=== PATIENT | male | born 1945 | race Caucasian/White ===

== ENCOUNTER 2016-07-23 07:00 | Observation (INO) | payer MEDICARE, OTHER ==
[~2016-07-23] VITALS: Ht 177.8 cm; Wt 77.5 kg
--- NOTE | 2016-08-29 09:38 | CONS ---
DATE OF ADMISSION: 07/23/2016 DATE OF CONSULTATION: TYPE OF CONSULTATION: Preoperative Internal Medicine Consultation, Medical History and Physical. The patient to have surgery with Dr. Juni Santiago 09/03/2016. REASON FOR CONSULTATION: Consultation requested by Dr. Juni Santiago for medical evaluation and clearance of a 70-year-old gentleman about to undergo surgery on his lumbar spine. Thank you, Dr. Santiago, for allowing us to participate in the care of this patient. HISTORY OF PRESENT ILLNESS: Rene Mock is a 70-year-old gentleman, long-term problems with hi s back, finally, reached the point where it is interfering with his life and he will be having surge ry for correction of the above problem. In terms of his prior surgical history: The patient has had no prior surgeries. He has had no medical hospitalizations. Has not broken any bones. He is currently being treated medically with Lipitor 10 mg a day and Rapaflo 5 mg for hyper lipidemia and prostate issues. ALLERGIES: HE IS NOT ALLERGIC TO ANY MEDICATIONS. SOCIAL HISTORY: The patient is , has 2 children. He does not smoke or drink alcoholic bever ages. He does drink coffee. 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 FAMILY HISTORY: Both parents are , father age 74, lung cancer, was a smoker. Mother at 69, unknown cause. One brother was a diabetic and from complications of diabetes. There is a fam keren history of diabetes and cancer. No heart, hypertension or stroke to his knowledge. REVIEW OF SYSTEMS HEENT: Denies any headaches. CARDIORESPIRATORY: Denies any chest pain or shortness of breath. GASTROINTESTINAL: No melena or hematemesis. GENITOURINARY: No urgency, frequency. MUSCULOSKELETAL: Positive for back issues, back pain, specifically L3 to L4 with herniated disk. NEUROPSYCHIATRIC: Unremarkable. GENERAL HEALTH: As above. PHYSICAL EXAMINATION: VITAL SIGNS: The patient's blood pressure was 160/80, pulse was 80 and regular, respirations were 1 8, temperature 98. Height 5 feet 11 inches, weight 172 pounds. GENERAL: The patient was noted to be a well-developed, well-nourished male, alert and cooperative, in no apparent acute distress, oriented to time, place, and person. HEENT: Head was atraumatic. Eyes: Pupils were equal, reactive to light and accommodation. Fundi were benign. Tympanic membranes were unremarkable. Nose was negative. Mouth was unremarkable. Fa ir oral hygiene was present. NECK: Supple without any rigidity. Trachea was midline. Thyroid was unremarkable. Neck veins wer e flat. Carotid pulses were equal. No bruits were heard. BACK: Unremarkable. CHEST: Symmetrical. BREASTS AND AXILLARY: Did not reveal any masses. LUNGS: Clear to percussion and auscultation. HEART: PMI is at the fifth intercostal space at the midclavicular line. Regular sinus rhythm was n oted. No significant murmurs, rubs, or gallops being elicited. ABDOMEN: Soft, good bowel sounds were noted. No significant organomegaly, masses, or tenderness. GENITALIA: Normal male external genitalia. RECTAL AND PROSTATIC: Exam done recently by his urologist, unremarkable other than prostate enlarg ement. EXTREMITIES: Did not reveal any clubbing, edema or cyanosis. Peripheral pulses were physiologic. SKIN: Moist and warm without any eruptions. No gross lymphadenopathy was noted. NEUROLOGIC: Grossly intact. IMPRESSION: 1. Lumbar disk disease L3 to L4 with acute herniated disk. 2. Hyperlipidemia. 3. Prostatic hypertrophy. 4. Right bundle branch block. 5. Stable health. DISCUSSION: Review of laboratory and other data revealed the following: The patient's chemistry pa eliana revealed normal electrolytes, a random glucose of 121. Liver function tests were normal. Lipid s were normal as well. CPK was minimally elevated. Serum iron, CBC, UA, PT and PTT were normal as well. The patient's EKG revealed a right bundle branch block with a left axis anterior fascicular b lock with normal sinus rhythm. The patient's chest x-ray did not reveal any acute infiltrates. Dr. Santiago, I see no contraindication in this patient undergoing current proposed surgery under d esired form of anesthesia. I feel he is a suitable candidate at this particular point in time, and will be more than happy to follow him along with you during his stay at [facility]. Thank you again, Dr. Santiago, for allowing us to participate in the care of this patient. Dictated By: KAVIN MENDOZA/DAWIT Conf#: [id number] DID#: [id number]
[2016-09-02 09:15] VITALS: BMI 23.8
[2016-09-02] MEDS ORDERED: LIPITOR (09:18)
[2016-09-03] VITALS (29 sets, daily range): BP systolic 107–164; BP diastolic 57–88; PULSE 70–103; RESP 11–20; Ht 177.8 cm; Wt 77.5 kg
[2016-09-03] MEDS ORDERED: SILO4CAP PO (05:56)
[2016-09-03] MEDS ORDERED: ATOR10TA65 PO (05:56)
[2016-09-03] MEDS ORDERED: LACTATED RINGER'S 1,000 ML IV* SCH (06:00)
[2016-09-03] MEDS ORDERED: CEFAZOLIN 2 GM/50 ML (PMX) 50 ML IVPB SCH (06:00)
[2016-09-03] MEDS ORDERED: BUPIVACAINE 0.25%/EPI (SDV) 30 ML INJ ONE (06:53)
[2016-09-03] MEDS ORDERED: SURGIFOAM POWDER 1 GM KIT ONE (06:53)
[2016-09-03] MEDS ORDERED: THROMBIN 5000 UNIT VIAL ONE (06:54)
[2016-09-03] MEDS ORDERED: CA CHLORIDE 10% 10 ML SYRINGE ONE (06:54)
[2016-09-03] MEDS ORDERED: POLYMYXIN/BACITRACIN 1L IRRIG ONE (06:54)
[2016-09-03] MEDS ORDERED: ROCURONIUM 50 MG INJ ONE (06:57)
[2016-09-03] MEDS ORDERED: FENTAnyl 50 MCG/ML VIAL ONE ×2 (06:57→08:05)
[2016-09-03] MEDS ORDERED: MIDAZOLAM 1 MG/ML 2 ML INJ ONE (06:57)
[2016-09-03] MEDS ORDERED: PROPOFOL 100 ML ONE (06:57)
--- NOTE | 2016-09-03 07:01 | HPN ---
Date/Time of Note Date/Time of Note DATE: 09/03/16 TIME: 07:00 Interval H&P Admission Note Pt. seen H&P reviewed: No system changes ERIKA LEBLANC PA-C September 03, 2016 07:00
[2016-09-03] MEDS ORDERED: HYDROmorphONE 1 MG/ML SYG IV PRN (07:30)
[2016-09-03] MEDS ORDERED: DIPHENHYDRAMINE 50 MG INJ IV PRN ×2 (07:30→08:30)
[2016-09-03] MEDS ORDERED: HYDROmorphONE 0.2 MG/ML PCA IV SCH (07:30)
[2016-09-03] MEDS ORDERED: HYDROCODONE/APAP (10/325) TAB PO PRN ×2 (07:30)
[2016-09-03] MEDS ORDERED: CEFAZOLIN 1 GM/50 ML (PMX) 50 ML IVPB SCH (07:30)
[2016-09-03] MEDS ORDERED: ACETAMINOPHEN 325 MG TAB PO PRN (07:30)
[2016-09-03] MEDS ORDERED: AL HYDROX/MG HYDROX/SIMETH 30 ML CUP PO PRN (07:30)
[2016-09-03] MEDS ORDERED: ZOLPIDEM 5 MG TAB PO PRN (07:30)
[2016-09-03] MEDS ORDERED: CEPASTAT LOZENGE MT PRN (07:30)
[2016-09-03] MEDS ORDERED: ONDANSETRON 4 MG INJ IV PRN ×2 (07:30→08:30)
[2016-09-03] MEDS ORDERED: CYCLOBENZAPRINE 10 MG TAB PO PRN (07:30)
[2016-09-03] MEDS ORDERED: NALOXONE (0.4 MG/ML) INJ IV PRN (07:30)
[2016-09-03] MEDS ORDERED: BISACODYL 10 MG SUPP PR PRN (07:30)
[2016-09-03] MEDS ORDERED: hydrALAzine 20 MG INJ ONE (07:51)
[2016-09-03] MEDS ORDERED: DEXAMETHASONE 4 MG/ML 1 ML INJ ONE ×2 (07:53→07:54)
[2016-09-03] MEDS ORDERED: ONDANSETRON 4 MG INJ ONE (07:53)
[2016-09-03] MEDS ORDERED: CEFAZOLIN 1 GM INJ ONE (07:53)
[2016-09-03] MEDS ORDERED: METOCLOPRAMIDE 10 MG INJ ONE (07:53)
[2016-09-03] MEDS ORDERED: hydrALAzine 20 MG INJ IV PRN (08:30)
[2016-09-03] MEDS ORDERED: morphine (1 MG/ML) 10ML SYRINGE IV PRN ×3 (08:30)
[2016-09-03] MEDS ORDERED: EPHEDrine SULFATE 50 MG/5 ML SYG IV PRN (08:30)
[2016-09-03] MEDS ORDERED: HYDROmorphONE (0.2 MG/ML) 10ML SYG IV PRN ×3 (08:30)
[2016-09-03] MEDS ORDERED: MEPERIDINE 25 MG INJ IV PRN (08:30)
[2016-09-03] MEDS ORDERED: PHENYLephrine (100 MCG/ML) 5ML SYG ONE (08:40)
[2016-09-03] MEDS ORDERED: NEOSTIGMINE 3 MG/3 ML SYRINGE ONE (08:43)
[2016-09-03] MEDS ORDERED: GLYCOPYRROLATE 1 MG INJ ONE (08:43)
[2016-09-03] MEDS ORDERED: ACETAMINOPHEN 1000MG/100ML IV 100 ML ONE (08:44)
[2016-09-03] MEDS: DOCUSATE SODIUM 100 MG CAP PO SCH ×2 (09:00→20:27)
[2016-09-03] MEDS ORDERED: NALOXONE (0.4 MG/ML) INJ ONE (09:02)
--- NOTE | 2016-09-03 10:27 | OPR ---
DATE OF OPERATION: 09/03/2016 PREOPERATIVE DIAGNOSES: 1. L3 to L4 listhesis. 2. Left L3 to L4 stenosis with radiculopathy. POSTOPERATIVE DIAGNOSES: 1. L3 to L4 listhesis. 2. Left L3 to L4 stenosis with radiculopathy. 3. Extradural intraspinal cyst. PROCEDURE PERFORMED: 1. Left L3 to L4 decompression with decompression of L3 and L4 nerve roots. 2. Removal of intraspinal extradural cyst. 3. Neurolysis under microscopic visualization. 4. Lateral localizing film x2. 5. Use of operative microscope. 6. Epidural injection via catheter. 7. Intraoperative neuromonitoring (1.5 hours). PRIMARY SURGEON: Juni Santiago MD PRESSURIZATION MECHANIC: Parul Hardin PA-C NEED FOR TEACHER ADVISOR: During this spinal surgical procedure, my dam tender assistant was used to retrac t and protect the spinal nerves and dural sac. My dam tender assistant also employed the suction catheters to evacuate blood from the surgical field to improve visualization of the neural structures. The ankit tant was medically necessary to facilitate the completion of the surgery in a safe and expeditious dinorah. State of [place] regulations, as well as hospital bylaws, preclude the use of non-license d health care personnel, such as operating room technicians, to perform these functions. FINDINGS: Neuromonitoring at the start of the case revealed left L3 amplitude down 60%, left L4 amp litude down 40%. At the end of the case, nerve signals returned to normal. The patient had stenosi s due to facet and ligamentum hypertrophy and also had an extradural cyst. ESTIMATED BLOOD LOSS: 40 mL. DRAINS: None. SPECIMENS: Cyst. COMPLICATIONS OF PROCEDURES: None. ANESTHESIOLOGIST: Michael Wong MD ANESTHESIA: General. INDICATIONS FOR PROCEDURE: This is a 70-year-old gentleman with left lumbosacral radiculopathy in t he setting of stenosis at L3 to L4. He had failed nonoperative measures; therefore, I recommended p roceeding with the above-mentioned surgery. Preoperatively, we discussed the risks, benefits, and a lternatives. He understood and wished to proceed. DESCRIPTION OF PROCEDURE IN DETAIL: The patient was identified in the preoperative holding area, [facility], taken to the operating room, where he was successfully placed under general an esthesia. Neuromonitoring leads were placed, sequential compressive devices were applied. Neuromon itoring was utilized during the procedure for 1.5 hours to include SSEP, MEP, and EMG. This was per formed by [facility]. Start time was 7:30 a.m., closure time was 9:00 a.m. The patient was p laced on the operating table in the prone position over a Yash frame. All bony prominences were w ell padded. The back was then prepped and draped in the usual sterile fashion. [place] were placed . Lateral localizing film was obtained to confirm the correct levels. I then injected the skin and subcutaneous tissue with 0.25% Marcaine and epinephrine. The incision was then made over the L3 to L4 level. Incision was taken down off the dorsal fascia, which was incised with Bovie cautery. I then subperiosteally dissected the L3 lamina. [place] retra ctors were placed. Overgrowth of the facet was identified. Lateral film was obtained to confirm th e correct levels. Once this was confirmed, microscope was brought in and a left-sided hemilaminotom y, partial medial facetectomy, and foraminotomy were performed. Ligamentum flavum was then sharply dissected. Ligamentum flavum was quite thickened and there appeared to be an extradural intraspinal cyst which was removed. This allowed decompression of the central canal. I was then able to decom press the lateral recess and the foramen. Significant blood vessels were identified dorsally and th erefore, time was spent dissecting these and cauterizing them. There was a leash of vessels not all owing the nerve to be mobilized and therefore, neurolysis was performed under microscopic visualizat ion. This took time to carefully dissect the vessels off of the nerve root to allow mobilization of the L4 nerve root. Once this was done, I felt the floor of the canal. I did not identify any true disk herniations and therefore, diskectomies were not performed. At this point, all nerve signals returned to normal. Hemostasis was achieved with Surgifoam and bipolar cautery. The wound was then irrigated. Valsalva maneuver was performed and there was no leak of CSF. Epidur al catheter was passed through which I injected 100 mcg of fentanyl, and the catheter was removed. Anesthesiologist janes peripheral blood which was spun down using the Dimdim device. I took the pl atelet-poor plasma and mixed this with thrombin and injected this over the dura for hemostatic purpo ses. Retractors were removed and I closed the deep fascia with #1 Vicryl stitch. I closed subcutan eous tissues with 2-0 Vicryl stitch. Microscope was taken off the field. A 4-0 Monocryl closure wa s then performed. Dermabond was then applied. The patient was then awakened from anesthesia and ta louise to recovery room in stable condition. Lap, sponge, and instrument counts were correct x2. Ther e were no apparent complications during the procedure. The patient will be admitted to the [facility]opedic [facility] for routine postoperative care to include pain c ontrol, neurovascular checks, antibiotics, and physical therapy. Dictated By: JUNI BIRD/DAWIT Conf#: [id number] DID#: [id number]
[2016-09-03] MEDS ORDERED: SILODOSIN 4 MG PO SCH (11:30)
--- NOTE | 2016-09-03 13:00 | CONS ---
DATE OF ADMISSION: 09/03/2016 DATE OF CONSULTATION: 09/03/2016 POSTOPERATIVE CONSULT FOLLOWUP: The patient had surgery with Dr. Juni Santiago on 09/03/2016. HISTORY OF PRESENT ILLNESS: Patient consult followup requested by Dr. Juni Santiago. The patient tolerated surgery well. He is alert, in the recovery room, awaiting a room, only complaint is that he is having difficulty urinating and had not taken his Rapaflo today before the surgery. VITAL SIGNS: Blood pressure was 132/70, pulse 84 and regular, respirations 17, temperature 98 preop and O2 sat 97% on room air. HEENT: Unremarkable. LUNGS: Clear. HEART: Reveals a regular rhythm. The rest of the exam is unremarkable. IMPRESSION: 1. Status post lumbar spine surgery. 2. Hyperlipidemia by history. 3. Urinary tract problems. Patient's preop medicines were continued including his Rapaflo as well as his Atorvastatin. The patient is attempting to urinate hopefully, he will be successful and may add Flomax his regimen should he be unable to urinate himself with his current regimen. CONDITION: Postoperative stable. We will follow him with you during his stay at [facility]. Thank you again, Dr. Santiago, allowing us to participate in the care of this patient. Dictated By: KAVIN MENDOZA/NTS Conf#: [id number] DID#: [id number]
--- NOTE | 2016-09-03 13:20 | RADRPT ---
PROCEDURE: Intraoperative XR. CLINICAL INDICATION: Intraoperative radiograph during L3-4 microdiskectomy. TECHNIQUE: Spot intraoperative lateral lumbar x-ray image was provided. The images were reviewed on a high-resolution PACS workstation. COMPARISON: None available FINDINGS: Spot intraoperative lateral lumbar view were provided during L3-4 microdiskectomy. The images demon strate metallic probes at the level of L3 and L4. There is 6 mm of anterolisthesis of L3 on L4 and 3 mm retrolisthesis of L4-5. There is moderate to severe spondylosis at L4-5 and L5-S1. IMPRESSION: 1. Spot intraoperative lateral lumbar view during L3-4 microdiskectomy were provided. 2. Please see operative report of the same day for further information. RPTAT: DD .Misael Mejia MD, Date Time Electronically viewed and signed by .Misael Mejia MD, on 09/03/2016 13:19 .S/
--- NOTE | 2016-09-03 13:31 | RADRPT ---
PROCEDURE: Intraoperative XR. CLINICAL INDICATION: Intraoperative radiograph during L3-4 microdiskectomy.. TECHNIQUE: Spot intraoperative lateral lumbar x-ray image was provided. The images were reviewed on a high-resolution PACS workstation. COMPARISON: None available FINDINGS: Spot intraoperative lateral lumbar view were provided during L3-4 microdiskectomy. The images demon strate instrumentation at the level of L3-4. IMPRESSION: 1. Spot intraoperative lateral lumbar view during L3-4 microdiskectomy were provided. 2. Please see operative report of the same day for further information. RPTAT: DD .Misael Mejia MD, Date Time Electronically viewed and signed by .Misael Mejia MD, on 09/03/2016 13:31 .S/
[2016-09-03] MEDS: CEFAZOLIN 1 GM/50 ML (PMX) 50 ML IVPB SCH ×2 (14:40→23:05)
[2016-09-03] MEDS: D5W-0.45 NACL + KCL 20 MEQ 1,000 ML IV SCH ×2 (14:40→16:07)
[2016-09-03] MEDS ORDERED: ATORVASTATIN 10 MG TAB PO SCH (21:00)
[2016-09-03] MEDS ORDERED: TAMSULOSIN (SR) 0.4 MG CAP PO SCH (21:00)
[2016-09-04] MEDS: D5W-0.45 NACL + KCL 20 MEQ 1,000 ML IV SCH ×2 (03:47→12:02)
[2016-09-04] MEDS: CEFAZOLIN 1 GM/50 ML (PMX) 50 ML IVPB SCH (06:22)
[2016-09-04] MEDS: DOCUSATE SODIUM 100 MG CAP PO SCH (08:44)
[2016-09-04 08:57] VITALS: BP 103/58; RESP 20
[2016-09-04] MEDS ORDERED: NON-FORMULARY/PATIENT OWN MED (Silodosin (Rapaflo) 8 MG) PO SCH (09:00)
[2016-09-04] MEDS ORDERED: TAMSULOSIN (SR) 0.4 MG CAP PO ONE (09:00)
--- NOTE | 2016-09-04 11:01 | DS ---
DATE OF ADMISSION: 09/03/2016 DATE OF DISCHARGE: 09/04/2016 ADMITTING DIAGNOSIS: Spinal stenosis. DISCHARGE DIAGNOSIS: Spinal stenosis. PROCEDURE: Patient taken to the operating room on 09/03/2016 and underwent L3-4 decompression. HOSPITAL COURSE: The patient was admitted to the [facility] after undergoing above procedure. His postop course was uncomplicated. By postop day 1, he was deemed stable for discharge. Followu p arranged with the undersigned. Dictated By: ROMANA BIRD/DAWIT Conf#: [id number] DID#: [id number]
--- NOTE | 2016-09-04 14:36 | CONS ---
DATE OF ADMISSION: 09/03/2016 DATE OF CONSULTATION: 09/04/2016 POSTOPERATIVE CONSULTATION FOLLOWUP TIME SEEN: Approximately 8 a.m. HISTORY OF PRESENT ILLNESS: The patient seen still with a Cordova catheter in place, was unable to ur inate. When last attempt of removal and currently has his catheter in. He has, however, gotten up, has walked, hope is to get it out today. OBJECTIVE: VITAL SIGNS: Temperature 97.9, pulse 85, respirations 20, blood pressure 103/58, O2 sat 96% on room air. HEENT: Unremarkable. LUNGS: Clear. HEART: Reveals a regular rhythm. ABDOMEN: Unremarkable. Cordova catheter in place. IMPRESSION: 1. Status post lumbar spine surgery. 2. Prostate enlargement with urinary retention. 3. Hyperlipidemia. DISCUSSION: Attempt will be made to discontinue the catheter should that be successful. He was giv en a dose of Flomax this morning as well as a dose of Rapaflo is being determined. He is medically stable otherwise and should be able to go home if Dr. Santiago feels he is stable enough. ADDENDUM: Post this dictation, Cordova was successfully removed. The patient was able to urinate; ho wever, did have residual of about 120 to 140 which is not unlike what was preoperative around 99. T he patient will be going to see his urologist once he is discharged. Thank you again, Dr. Santiago, for allowing us to participate in the care of this patient. Dictated By: KAVIN MENDOZA/DAWIT Conf#: [id number] DID#: [id number]
== END 2016-09-04 12:43 | disposition home or self-care (01) ==
LOC: INTOOBSV 09-03 05:19 → REC 09-03 05:19 → MS1 09-03 13:10
PROVIDERS: ADMIT Specialist; ATTEND Specialist
DX: M54.16 Radiculopathy, lumbar region (principal); M48.06 Spinal stenosis, lumbar region; E78.5 Hyperlipidemia, unspecified
CPT/HCPCS: 63030; 72020; 86999; 87086; 88304; 88311; 96361; 96365; 97162; A4310; G0378; J0131; J0360; J0690; J1100; J1170; J2250; J2310; J2405; J2710; J2765; J3010; J3480; J2370